=== PATIENT | male | born 1990 | race Hispanic/Latino ===

== ENCOUNTER 2023-10-15 15:06 | Emergency (ER) | payer OTHER ==
[~2023-10-15] VITALS: Ht 162.6 cm; Wt 70.3 kg
[2023-10-15 15:52] LABS: BASOPHILS # (AUTO) 0.01 K/uL (0.00-0.20); BASOPHILS % (AUTO) 0.1 % (0.0-5.0); EOSINOPHILS # (AUTO) 0.06 K/uL (0.00-0.70); EOSINOPHILS % (AUTO) 0.6 % (0.0-8.0); HEMATOCRIT 44.4 % (42-54); LYMPHOCYTES # (AUTO) 1.7 K/uL (1.0-4.8); LYMPHOCYTES % (AUTO) 16.6 % (21.0-51.0); MEAN CORPUSCULAR HGB CONC 33.1 g/dL (32.0-36.0); MEAN CORPUSCULAR VOLUME 75.5 fL (79-99); MONOCYTES # (AUTO) 0.6 K/uL (0.1-1.0); MONOCYTES % (AUTO) 5.8 % (3.0-13.0); NEUTROPHILS # (AUTO) 7.6 K/uL (1.8-7.7); NEUTROPHILS % (AUTO) 75.9 % (40.0-77.0); PLATELET COUNT (AUTO) 340 K/uL (130-400); RED BLOOD CELL COUNT(AUTO) 5.88 MIL/uL (4.50-6.20); RED CELL DISTRIBUTION WIDTH 16.5 % (11.0-15.5)
[2023-10-15 15:55] LABS: APPEARANCE,URINE CLEAR (CLEAR); BILIRUBIN,URINE NEGATIVE (NEGATIVE); COLOR,URINE YELLOW (YELLOW); GLUCOSE, URINE (UA) NEGATIVE (NEGATIVE); KETONES,URINE 40 mg/dL (NEGATIVE); LEUKOCYTE ESTERASE ,URINE NEGATIVE Leu/uL (NEGATIVE); NITRATE,URINE NEGATIVE (NEGATIVE); OCCULT BLOOD,URINE NEGATIVE (NEGATIVE); PROTEIN,URINE NEGATIVE (NEGATIVE); UROBILINOGEN,URINE 0.2 mg/dL (0.2-1.0)
[2023-10-15 16:00] LABS: ADD UA MICROSCOPIC YES
[2023-10-15 16:05] LABS: ALBUMIN 2.4 g/dL (3.5-5.0); BILIRUBIN,TOTAL 0.5 mg/dL (0.2-1.0); CREATININE 0.8 mg/dL (0.5-1.5); TOTAL PROTEIN, SERUM 6.6 g/dL (6.0-8.3)
[2023-10-15 16:08] LABS: BACTERIA,URINE RARE /HPF (None Seen); MUCUS,URINE RARE LPF (None Seen)
[2023-10-15 16:15] LABS: INFLUENZA TYPE A Negative For Type A (NEGATIVE); INFLUENZA TYPE B Negative For Type B (NEGATIVE); RAPID GROUP A STREP negative (NEGATIVE)
[2023-10-15 16:21] LABS: COVID19 (SARS ANTIGEN RAPID) PRESUMPTIVE NEGATIVE (NEGATIVE)
[2023-10-15 17:57] VITALS: TEMP 102.2
[2023-10-15] MEDS ORDERED: AUD IH (17:58)
[2023-10-15] MEDS ORDERED: CLAR-59 PO (17:58)
[2023-10-15] MEDS ORDERED: ACETAMINOPHEN 500 MG TABLET PO ONE (18:00)
[2023-10-15 18:41] VITALS: BP 126/86; PULSE 108; RESP 20; O2SAT 99
== END 2023-10-15 18:10 | disposition home or self-care (01) ==
LOC: EDH 15:06
DX: U07.1 COVID-19 (principal); J12.82 Pneumonia due to coronavirus disease 2019; R06.09 Other forms of dyspnea; Z98.890 Other specified postprocedural states; Z79.899 Other long term (current) drug therapy
CPT/HCPCS: 36415; 71046; 80053; 81001; 83605; 85025; 87040; 87088; 87426; 87804; 87880

== ENCOUNTER → 2025-01-01 | Outpatient (CLI) | payer OTHER ==
[~2025-01-01] MED LIST: AUD IH; CLAR-59 PO; GADOTERATE MEGLUMINE 10 MMOL/20 ML VIAL IV ONE
--- NOTE | 2025-01-01 15:33 | HMCIMG ---
MRI BRAIN WITHOUT AND WITH CONTRAST INDICATION: MULTIPLE SCLEROSIS follow-up TECHNIQUE: Multiplanar multisequence imaging through the brain before and after the administration of 15 mL of Clariscan contrast material without adverse effect. COMPARISON: None FINDINGS: Subcentimeter high T2 and FLAIR signal foci within the left greater than right centrum semiovale/periventricular white matter at the mid to high convexity. Brainstem and cerebellum are spared. No evidence for optic nerve enhancement. No abnormal brain parenchymal or meningeal enhancement noted. No evidence for acute ischemia, hemorrhage or mass lesion. No hydrocephalus or extra-axial fluid collection identified. The pituitary, cavernous sinus, hypothalamic and pineal regions appear normal. The cranial-cervical junction, atlanto-dens interval and position of the cerebellar tonsils are within normal limits. Cranial nerve VII/VIII complexes appear normal without evidence for gross intracanalicular or cerebellar-pontine angle lesion. No evidence for sinusitis or mastoiditis. Calvarium appears normal. IMPRESSION: No comparison imaging provided at time of interpretation. Findings consistent with known underlying multiple sclerosis, without superimposed active/inflammatory plaque or any evidence for optic neuritis..
== END | disposition home or self-care (01) ==
LOC: RAH 13:59
PROVIDERS: ATTEND Psychiatry & Neurology Neurology
DX: G35 Multiple sclerosis (principal)
CPT/HCPCS: 70553; A9575